=== PATIENT | male | born 1940 | race Caucasian/White ===

== ENCOUNTER 2019-05-20 16:44 | Inpatient (IN) ==
--- NOTE | 2019-05-20 17:45 | PROVIDER DOCUMENTATION ---
HPI-General Adult - General Chief Complaint: Flu Symptoms Stated Complaint: FLU SYMPTOMS Time Seen by Provider: 05/20/19 17:42 Source: patient, family Allergies/Adverse Reactions: Patient Allergies Allergy/AdvReac Type Severity Reaction Status Date / Time Penicillins Allergy HIVES Verified 05/20/19 17:34 Home Medications: Home Medication List Medication Instructions Recorded Confirmed Last Taken Type Aspirin 1 tab PO DAILY 05/20/19 05/20/19 Unknown History Fenofibrate,Micronized 1 cap PO DAILY 05/20/19 05/20/19 Unknown History [Fenofibrate] Insulin Glargine,Hum.rec.anlog 46 units SUBQ DAILY 05/20/19 05/20/19 Unknown History [Lantus Solostar] LISINOpril [Prinivil] 1 tab PO DAILY 05/20/19 05/20/19 Unknown History Omeprazole 1 cap PO DAILY 05/20/19 05/20/19 Unknown History PRAVAstatin [Pravachol] 1 tab PO DAILY 05/20/19 05/20/19 Unknown History Pioglitazone [Actos] 1 tab PO DAILY 05/20/19 05/20/19 Unknown History - History of Present Illness -Gen Adult Nature of Presenting Problems: 79yo male who presents with CC of chills, fevers, and body aches. The onset was yesterday. The temp recorded at home was up to 103.1. The patient denies an nausea, vomiting, or diarrhea. The patient denies any abdominal pain. The patient does report some dysuria that he has been taking azo for the. The patient does reports some neck pain, but denies any visual issues. The patient reports some body aches and difficulty with balance. The patient denies any current chest pain, but did have some intermittent chest pain. The patient does report a SEPULVEDA. The patient does report a dry cough, but no shortness of breath. Review of Systems - Adult - REVIEW OF SYSTEMS - ADULT Constitutional: reports: fever Eyes: denies: blurred vision Ears, Nose, Mouth & Throat: reports: no symptoms reported Cardiovascular: reports: chest pain (now resolved) Respiratory: reports: cough. denies: shortness of breath Gastrointestinal: denies: abdominal pain, nausea, vomiting Genitourinary: reports: dysuria Musculoskeletal: reports: neck pain Integumentary: reports: no symptoms reported. denies: rash Neurological: reports: loss of balance Psychiatric: reports: no symptoms reported Endocrine: reports: no symptoms reported Allergic/Immunologic: reports: no symptoms reported Past History - Adult - PAST MEDICAL HISTORY-ADULT Review of Records: reports: Old Records Reviewed Cardiovascular: reports: CAD, HTN Genitourinary: reports: cancer (prostate) Endocrine/Immune: reports: Diabetes - SOCIAL HISTORY Smoking: denies Substance Use: none/never Alcohol Use Frequency: never Physical Exam-General - PHYSICAL EXAM-ADULT Initial Vital Signs Reviewed: Yes - CONSTITUTIONAL General Appearance: appears well, alert, no apparent distress - EYES Eyes: PERRL/EOMI. negative: conjuctival exudate, meningismus, photophobia, scleral icterus - HEAD, EARS, NOSE, MOUTH & THROAT HENMT: normocephalic/atraumatic, moist mucous membranes, pharynx normal - NECK Neck: negative: meningismus - RESPIRATORY Respiratory: no respiratory distress, decreased breath sounds (RLL) - CARDIOVASCULAR Cardiovascular: regular rate, rhythm, no edema - GASTROINTESTINAL (ABDOMEN) Abdominal Exam: non tender, soft - MUSCULOSKELETAL Back Exam: no CVA tenderness Extremity: non-tender, other (Strength 4/5R and 5/5L in UE, 5/5 bilaterally in the LE) - SKIN Integumentary: normal color, warm/dry - NEUROLOGIC 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 negative: sensory deficit - PSYCHIATRIC Psych/Mental Status: normal mood/affect, normal thought content, normal thought process Progress - PLAN OF CARE/RESULTS Progress/Plan/Lab Results: Vital Signs - 8 hr 05/20/19 16:49 Temperature 98.5 F Pulse Rate 92 H Respiratory Rate 18 Blood Pressure 157/82 O2 Sat by Pulse Oximetry 96 Orders Category Date Time Status INFLUENZA SCREEN A/B Stat Lab 05/20/19 16:57 Received Result Diagrams: 05/20/19 18:20 05/20/19 18:20 - REASSESSMENT Reassessment #1 Status: other (Given patient currently recieving radiation therapy and is likely immunocompromised and he has prostate cancer with a positive SIRs status will admit and start on abx for UTI. Discussed case with hospitalist who has accepted the patient.) Departure - Departure Date of Disposition Decision: 05/20/19 Time of Disposition Decision: 21:07 DIAGNOSIS: Prostate cancer UTI (urinary tract infection) Qualifiers: Urinary tract infection type: site unspecified Hematuria presence: with hematuria Qualified Code(s): N39.0 - Urinary tract infection, site not specified Disposition: ADMITTED INPATIENT 09 Certified Medical Emergency: Emergent Condition: Fair Referrals and Follow-Ups: Huey Irby MD [Primary Care Provider] - - Critical Care Note This patient required my direct & personal management of CC.: No Attestation - Physician/ SANGEETA Attestation Patient care was provided by Advanced Practice Provider:: No The physician spent face to face time with patient:: Yes Advanced Practice Provider documentation review:: Supervising physician onsite and consulted in the evaluation and care of this patient. The physician did have a face to face encounter with the patient.
[2019-05-20 18:37] LABS: BASO# 0.01 X1000 (0.0-0.2); BASO% 0.2 % (0.0-0.8); EOS# 0.19 X1000 (0.0-0.7); EOS% 4.3 % (0.0-10.0); LYMPH# 0.37 X1000 (1.2-3.4); LYMPH% 8.4 % (20.5-51.1); MCH 29.1 PG (27-31); MCHC 31.6 g/dL (33-37); MCV 92.2 FL (81-99); MONO# 0.43 X1000 (0.11-0.59); MONO% 9.8 % (1.7-9.3); MPV 10.1 FL (7.4-10.4); NEUT% 77.3 % (42.2-75.2); PLT 188 X1000 (130-400); RBC 4.12 XMIL (4.7-6.1); RDW 12.9 % (11.5-14.5)
--- NOTE | 2019-05-20 18:47 | Diag Imaging Result Doc PS360 ---
EXAM: CHEST-2 VIEWS HISTORY: Fever TECHNIQUE: Two views COMPARISON: None. FINDINGS: The lungs are well expanded. The heart is not enlarged. The vessels are not distended. There are no infiltrates. No pleural effusions. IMPRESSION: No pneumonia Electronically signed by Sundeep Knight 05/20/2019 6:45 PM
[2019-05-20] MEDS ORDERED: TYLENOL PO ONE (18:49)
[2019-05-20 18:53] LABS: URINE SOURCE CLEAN CATCH
[2019-05-20 18:58] LABS: BILIRUBIN URINE NEGATIVE (NEGATIVE); BLOOD URINE TRACE (NEGATIVE); COLOR YELLOW; GLUCOSE URINE 500 mg/dL (NEGATIVE); KETONE URINE NEGATIVE (NEGATIVE); LEUKOCYTES URINE NEGATIVE (NEGATIVE); NITRITE URINE POSITIVE (NEGATIVE); PROTEIN URINE TRACE mg/dL (NEGATIVE); SP GRAVITY URINE 1.022; TURBIDITY URINE CLEAR (CLEAR); UROBILINOGEN URINE NORMAL (NORMAL)
[2019-05-20 18:59] LABS: UR EPITHELIAL CELLS <10 /HPF (<10); URINE BACTERIA NEGATIVE /HPF; URINE RBC <10 /HPF (<10); URINE WBC <10 /HPF (<10)
[2019-05-20 19:01] LABS: ALBUMIN 4.7 g/dL (3.5-5.0); CALCIUM 9.7 mg/dL (8.8-10.2); CREATININE 1.9 mg/dL (0.7-1.2); POTASSIUM 4.3 mmol/L (3.5-5.1); TOTAL BILIRUBIN 0.62 mg/dL (0.20-1.00); TOTAL PROTEIN 7.1 g/dL (6.3-8.3)
[2019-05-20] MEDS ORDERED: NS 1,000 ML IV ONE (20:59)
[2019-05-20] MEDS ORDERED: CIPRO 400 MG/D5W 400 MG/200 ML IVPB IV SCH (21:00)
--- NOTE | 2019-05-20 21:09 | EKG Report ---
Test Performed on : 05/20/2019 7:46:08 PM Test Reason : CP Blood Pressure : / mmHG Vent. Rate : 085 BPM Atrial Rate : 085 BPM P-R Int : 164 ms QRS Dur : 082 ms QT Int : 328 ms P-R-T Axes : 056 011 045 degrees QTc Int : 390 ms Normal sinus rhythm. Inferior infarct , age undetermined Abnormal ECG No previous ECGs available Unconfirmed Result
[2019-05-21] MEDS ORDERED: ZOFRAN IV PRN (00:02)
[2019-05-21] MEDS ORDERED: TYLENOL PO PRN (00:02)
[2019-05-21] MEDS: NS 1,000 ML IV SCH ×3 (00:52→20:39)
[2019-05-21] MEDS: INVANZ 1 GM/NS 1 GM/50 ML IVPB IV SCH (01:00)
--- NOTE | 2019-05-21 01:24 | HISTORY AND PHYSICAL ---
PRIMARY CARE PHYSICIAN: Dr. Irby. CHIEF COMPLAINT: Fever, chills. HISTORY OF PRESENTING ILLNESS: An 79-year-old elderly male with a history of prostate cancer currently on radiation therapy, diabetes mellitus type 2, hypertension, coronary artery disease, who presented to emergency department with 1-day history of having fever, chills. The patient states that his temperature was 103.1. He was feeling not well and subsequently had come to the emergency department. In the ED, he was evaluated. He had laboratories and urinalysis drawn which did come back positive for possible UTI. Due to his presenting symptoms and overall medical condition, it was thought that he would need admission for further management. At the time of my examination, patient denied any headache, nausea, vomiting, diarrhea, chest pain, shortness of breath, but complained of fever, chills and not feeling well. PAST MEDICAL HISTORY: Includes prostate cancer, diabetes mellitus type 2, hypertension, hyperlipidemia, coronary artery disease. PAST SURGICAL HISTORY: Coronary stent, cholecystectomy, appendectomy, neck surgery, back surgery, cataract surgery. ALLERGIES: Penicillin. CURRENT MEDICATIONS: Aspirin 81 mg p.o. daily, fenofibrate 200 mg p.o. daily, Lantus SoloSTAR 46 units subcutaneous daily, lisinopril 10 mg p.o. daily, omeprazole 20 mg p.o. daily, Actos 30 mg p.o. daily, pravastatin 40 mg p.o. daily. SOCIAL HISTORY: He is a former smoker. No history of alcohol or illicit drug use. FAMILY HISTORY: No history of coronary artery disease. REVIEW OF SYSTEMS: Fourteen point review of system as listed in HPI. Other systems negative. PHYSICAL EXAMINATION: GENERAL: Cooperative, friendly male. He is resting more comfortably now. VITAL SIGNS: Temperature 103.0 degrees, pulse 92, respiration 18, blood pressure 157/82. HEENT: Atraumatic, normocephalic. Extraocular movements intact. PERRLA. NECK: No masses. CHEST: Clear to auscultation. CARDIOVASCULAR: Regular rate and rhythm. ABDOMEN: Soft. Positive bowel sounds. EXTREMITIES: No edema. NEUROLOGIC: He is awake, alert, oriented x3. GENITOURINARY: No bladder distention. SKIN: Warm. LABORATORIES AND STUDIES: WBCs 4.40, hemoglobin 12.0, hematocrit 38.0, platelets 188,000. Sodium 138, potassium 4.3, chloride 99, CO2 is 25, BUN is 32, creatinine is 1.9, glucose 199. Chest x- ray, no pneumonia. ASSESSMENT: This is an 79-year-old elderly male with a history of prostate cancer, diabetes mellitus type 2, hypertension, hyperlipidemia, who presented to emergency department with 1-day history of having fever, chills. The patient states that he was not feeling well and subsequently had come to the emergency department. In the ED, he was evaluated. He had a urinalysis that did show nitrite positive and subsequently it was thought that he had a urinary tract infection and he will require admission for further management. 1. Fever, chills. 2. Suspected urinary tract infection. 3. Acute kidney injury. 4. Prostate cancer. 5. Diabetes mellitus type 2. PLAN: 1. We will admit patient to medical floor with telemetry. 2. We will check urine cultures, blood cultures. Start patient on IV antibiotics. 3. Continue with gentle hydration. Monitor renal function. 4. We will consult his radiation oncologist regarding his treatment in the morning. 5. We will monitor blood glucose and put patient on a sliding scale insulin regimen. 6. We will put patient on DVT prophylaxis with heparin. 7. We will continue to follow, reassess and make further recommendation based on patient's clinical course. cc: MD Huey Callahan MD
[2019-05-21] MEDS: HEPARIN SUBQ SCH ×2 (03:28→17:00)
[2019-05-21] MEDS: HUMULIN R SUBQ SCH ×4 (06:03→20:39)
[2019-05-21 07:47] LABS: EOS% 5.3 % (0.0-10.0); HEMATOCRIT 31.9 % (42.0-52.0); HEMOGLOBIN 9.9 g/dL (14.0-18.0); LYMPH# 0.58 X1000 (1.2-3.4); LYMPH% 15.3 % (20.5-51.1); MCH 28.9 PG (27-31); MCV 93.3 FL (81-99); MONO% 13.2 % (1.7-9.3); MPV 10.2 FL (7.4-10.4); NEUT# 2.51 X1000 (1.4-6.5); NEUT% 66.2 % (42.2-75.2); PLT 171 X1000 (130-400); RBC 3.42 XMIL (4.7-6.1); RDW 12.9 % (11.5-14.5); WBC 3.79 X1000 (4.8-10.8)
[2019-05-21 08:16] LABS: CALCIUM 8.5 mg/dL (8.8-10.2); CREATININE 1.8 mg/dL (0.7-1.2)
[2019-05-21] MEDS ORDERED: LOFIBRA PO SCH (09:00)
[2019-05-21] MEDS ORDERED: ASPIRIN PO SCH (09:00)
[2019-05-21] MEDS ORDERED: ACTOS PO SCH ×2 (09:00)
[2019-05-21] MEDS ORDERED: PRILOSEC PO SCH (09:00)
[2019-05-21] MEDS ORDERED: PRINIVIL PO SCH (09:00)
[2019-05-21] MEDS ORDERED: PRAVACHOL PO SCH (09:00)
--- NOTE | 2019-05-21 16:42 | PROGRESS NOTE ---
DATE: 05/21/2019 HISTORY: Mr. Zaheer Rivera is a patient of Dr. Randy Irby who came in with fever and chills. He is an 79-year-old with history of prostate cancer, currently on radiation therapy. I think he is on his 8-1/2-week treatment. He has diabetes mellitus type 2, hypertension, and coronary artery disease. Presented to the emergency department with a 1-day history of having fever, chills. Patient states that his temperature was 103.1 degrees, and he felt bad for really most of the week, the last 3 days in particularly. In the emergency department they evaluated his labs and urinalysis which were drawn, positive for what looks like urinary tract infection and probably prostatitis in the face of a prostate infection, so he was admitted to the hospital. PAST MEDICAL HISTORY: Includes prostate cancer, getting radiation treatment right now, diabetes mellitus type 2, hypertension, hyperlipidemia, coronary artery disease. PAST SURGICAL HISTORY: Coronary stent, cholecystectomy, appendectomy, neck surgery, back surgery, cataract surgery. PHYSICAL EXAMINATION: Vital Signs: This afternoon his temperature is 98.3 degrees. He feels better, not having the chills like he was. Pulse 67, respirations 19, blood pressure 154. HEENT: Pupils are equal. Neck: No distended neck veins. Lungs: Clear in all lung carr. Cardiovascular: Regular rate without murmur or S3. Input/Output: Urine output was 1440 mL. Skin: Without rash. Oral and nasal mucosa without any lesions. LABORATORY DATA: Blood sugar 142 and 162. His renal function: Sodium was 138, potassium 4.0, chloride 104, bicarb 24, BUN 28, creatinine 1.8. When he came in yesterday it was 1.9. ASSESSMENT AND PLAN: 1. Fever and chills. Suspect urinary tract infection, particular suspect prostatitis with underlying prostate infection. Started on antibiotics to cover for gram-negative organisms. 2. Acute kidney injury. We will give him some fluids and see how we do. 3. Prostate cancer. He is undergoing radiation treatment at this time. 4. Diabetes mellitus type 2. Will check pattern sugars. On review of his lab, nothing else really remarkable. His hematocrit was 38, hemoglobin 12. REVIEW OF ORDERS: He is on aspirin 81 mg a day, fenofibrate 160 mg a day, heparin 5000 units subcutaneously every 12 hours, ertapenem 1 gram IV every 24 hours, Prinivil 10 mg a day, Prilosec 20 mg a day, Actos 30 mg p.o. daily, Pravachol 40 mg a day. cc: MD Huey Lara MD
[2019-05-22] MEDS: INVANZ 1 GM/NS 1 GM/50 ML IVPB IV SCH (00:22)
[2019-05-22] MEDS: HUMULIN R SUBQ SCH (06:18)
[2019-05-22 08:10] VITALS: BP 117/63
[2019-05-22] MEDS ORDERED: LEVAQUIN PO SCH (09:00)
== END 2019-05-22 11:25 | disposition home or self-care (01) | DRG 728 ==
LOC: ED 16:44 → SUATTDRO 23:29 → 3N 23:29
PROVIDERS: ADMIT Internal Medicine; ATTEND Internal Medicine